=== PATIENT | female | born 1990 | race Hispanic/Latino ===

== ENCOUNTER 2017-10-20 19:43 | Emergency (ER) | payer OTHER ==
[~2017-10-20] VITALS: Ht 165.1 cm; Wt 71.7 kg
[2017-10-20] MEDS ORDERED: BACITRACIN ZINC 0.9GM TP ONE (20:03)
== END 2017-10-20 20:33 | disposition left against medical advice (07) ==
LOC: ER 19:43
DX: N63.10 Unspecified lump in the right breast, unspecified quadrant (principal)